=== PATIENT | male | born 1990 | race African-American/Black ===

== ENCOUNTER 2024-08-25 11:05 | Emergency (ER) | payer BC, MEDICAID ==
[~2024-08-25] VITALS: Ht 185.4 cm; Wt 145.1 kg
[2024-08-25] MEDS: IV NORMAL SALINE 1000 ML BAG IV ONE (11:36)
[2024-08-25 11:46] LABS: *BILIRUBIN,URIN NEGATIVE (NEGATIVE); *BLOOD, URINE NEGATIVE (NEGATIVE); *CLARITY,URINE CLEAR (CLEAR); *COLOR,URINE YELLOW (YELLOW); *KETONES,URINE NEGATIVE (NEGATIVE); *PROTEIN,URINE NEGATIVE (NEGATIVE); *UROBILINOGEN,URINE 0.2 E.U./dl (NORMAL); LEUKOCYTE ESTERASE ,URINE NEGATIVE (NEGATIVE); NITRITE, URINE NEGATIVE (NEGATIVE); UGLUCOSE NEGATIVE (NEGATIVE)
[2024-08-25 11:47] LABS: BASOPHILS # (AUTO) 0.1 K/UL (0.0-0.2); BASOPHILS % (AUTO) 0.6 % (0.0-2.0); EOSINOPHILS # (AUTO) 0.2 K/uL (0.0-0.7); EOSINOPHILS % (AUTO) 1.6 % (0.0-7.0); HEMATOCRIT 43.3 % (36.7-47.1); HEMOGLOBIN 14.2 g/dL (12.5-16.3); LYMPHOCYTES # (AUTO) 1.7 K/uL (0.8-4.8); LYMPHOCYTES % (AUTO) 17.1 % (20.5-51.5); MEAN CORPUSCULAR HEMOGLOBIN 25.8 uug (23.8-33.4); MEAN CORPUSCULAR HGB CONC 33 g/dL (32.5-36.3); MEAN CORPUSCULAR VOLUME 78.7 fL (73.0-96.2); MONOCYTES # (AUTO) 0.7 K/uL (0.1-1.30); MONOCYTES % (AUTO) 6.9 % (0.0-11.0); NEUTROPHILS # (AUTO) 7.5 K/uL (1.8-8.9); NEUTROPHILS % (AUTO) 73.8 % (38.5-71.5); PLATELET COUNT (AUTO) 338 K/uL (152-348); RED BLOOD CELL COUNT(AUTO) 5.51 MIL/uL (4.06-5.63); RED CELL DISTRIBUTION WIDTH 14.3 % (12.1-16.2); WHITE BLOOD COUNT (AUTO) 10.2 K/uL (3.6-10.2)
[2024-08-25 11:54] LABS: DIFFERENTIAL COMMENT 1
[2024-08-25 12:00] LABS: AMMONIA < 10 umol/L (11-32)
[2024-08-25 12:03] LABS: *AMPHETAMINE, URINE NEGATIVE (NEGATIVE); *BARBITURATE, URINE NEGATIVE (NEGATIVE); *BENZODIAZEPINE, URINE NEGATIVE (NEGATIVE); *CANNABINOID, URINE POSITIVE (NEGATIVE); *COCCAINE, URINE NEGATIVE (NEGATIVE); *OPIATE, URINE NEGATIVE (NEGATIVE); *PHENCYCLIDINE SCREEN,URINE NEGATIVE (NEGATIVE); FENTANYL, URINE NEGATIVE (NEGATIVE)
[2024-08-25 12:05] LABS: CARBON DIOXIDE 26 mmol/L (21-32); CHLORIDE 103 mmol/L (98-107); ETHANOL < 3 MG/DL (0-10); GLUCOSE 116 mg/dL (74-106); POTASSIUM 4.2 mmol/L (3.5-5.1); SODIUM SERUM 137 mmol/L (136-145); UREA NITROGEN, BLOOD 10 mg/dL (7-18)
[2024-08-25 12:07] LABS: MAGNESIUM 1.8 mg/dL (1.8-2.4); PHOSPHOROUS 3.3 mg/dL (2.5-4.9)
[2024-08-25 12:14] LABS: ALANINE AMINOTRANSFERASE 37 U/L (16-63); ALBUMIN 3.6 g/dL (3.4-5.0); ALKALINE PHOSPHATASE 100 U/L (50-136); ASPARTATE AMINOTRANSFERASE 25 U/L (15-37); BILIRUBIN,DIRECT 0.1 mg/dL (0.0-0.2); BILIRUBIN,TOTAL 0.4 mg/dL (0.2-1.0); TOTAL PROTEIN, SERUM 7.9 g/dL (6.4-8.2)
[2024-08-25] MEDS ORDERED: SWABABLE VALVE TRANSFER SET EA MC ONE (12:17)
[2024-08-25] MEDS ORDERED: IOHEXOL 350 100 ML INFUS..BTL ONE (12:17)
[2024-08-25] MEDS ORDERED: IV NORMAL SALINE 250 ML IV ONE (12:17)
[2024-08-25 12:19] LABS: THYROID STIMULATING HORMONE 0.951 mIU/mL (0.358-3.740)
[2024-08-25] MEDS ORDERED: HYDR-501 PO (13:51)
[2024-08-25 14:25] VITALS: BP 151/101; O2SAT 99
== END 2024-08-25 14:05 | disposition home or self-care (01) ==
LOC: ER 11:05
DX: R53.83 Other fatigue (principal); F43.9 Reaction to severe stress, unspecified; F12.10 Cannabis abuse, uncomplicated; H53.8 Other visual disturbances; R20.2 Paresthesia of skin; R29.898 Other symptoms and signs involving the musculoskeletal system; R55 Syncope and collapse; F41.9 Anxiety disorder, unspecified; E66.9 Obesity, unspecified; Z68.41 Body mass index [BMI] 40.0-44.9, adult
CPT/HCPCS: 80076; 80048; 81003; 82140; 82962; 83735; 84100; 84443; 85025; 84484; 36415; 71045; 70450; 70496; 70498; 93005; 99285; 96360; 96361; 80320; 80307; Q9967; J7040; A4606; A4663; G0480